=== PATIENT | male | born 1985 | race African-American/Black ===

== ENCOUNTER 2020-04-09 03:31 | Emergency (ER) | payer OTHER ==
[~2020-04-09] VITALS: Ht 172.7 cm; Wt 73.5 kg
[2020-04-09] MEDS ORDERED: PROAIR HFA8.5 GM INH (03:42)
[2020-04-09] MEDS ORDERED: SYMBICORT160 MCG/4. INH (03:43)
[2020-04-09] MEDS ORDERED: MEDROLDOSEPACK PO (04:01)
[2020-04-09 04:16] VITALS: BP 144/92
== END 2020-04-09 04:16 | disposition home or self-care (01) ==
LOC: M.ERS 03:31
DX: T63.441A Toxic effect of venom of bees, accidental (unintentional), initial encounter (principal); J45.909 Unspecified asthma, uncomplicated; Y92.89 Other specified places as the place of occurrence of the external cause